=== PATIENT | female | born 1980 | race Caucasian/White ===

== ENCOUNTER 2019-02-22 00:27 | Emergency (ER) | payer BC ==
[~2019-02-22] VITALS: Ht 175.3 cm; Wt 131.8 kg
[2019-02-22] MEDS ORDERED: TOPAMAX 25 MG T25 M1 PO (00:47)
[2019-02-22] MEDS ORDERED: HYDROXYZINE HCL25 M1 PO (00:48)
[2019-02-22] MEDS ORDERED: IBUPROFEN 800800 MG PO (01:17)
[2019-02-22] MEDS ORDERED: ACETAMINOPHEN-1 EAC1 PO (01:17)
[2019-02-22 01:38] VITALS: BP 124/93
== END 2019-02-22 01:38 | disposition home or self-care (01) ==
LOC: M.ERS 00:27
DX: S93.492A Sprain of other ligament of left ankle, initial encounter (principal); Z98.51 Tubal ligation status; Z88.2 Allergy status to sulfonamides; W18.39XA Other fall on same level, initial encounter; Y93.01 Activity, walking, marching and hiking; Y92.89 Other specified places as the place of occurrence of the external cause; Y99.8 Other external cause status

== ENCOUNTER 2019-02-26 19:03 | Emergency (ER) | payer BC ==
[~2019-02-26] VITALS: Ht 175.3 cm; Wt 126.5 kg
[~2019-02-26 19:03] MED LIST: ACETAMINOPHEN-1 EAC1 PO; HYDROXYZINE HCL25 M1 PO; IBUPROFEN 800800 MG PO; TOPAMAX 25 MG T25 M1 PO
[2019-02-26] MEDS ORDERED: FLEXERIL PO (21:56)
[2019-02-26] MEDS ORDERED: IBUPROFEN 800800 M1 PO (21:56)
[2019-02-26 22:07] VITALS: BP 133/79
== END 2019-02-26 22:08 | disposition home or self-care (01) ==
LOC: M.ERS 19:03
DX: S16.1XXA Strain of muscle, fascia and tendon at neck level, initial encounter (principal); M62.830 Muscle spasm of back; Z88.2 Allergy status to sulfonamides; V89.2XXA Person injured in unspecified motor-vehicle accident, traffic, initial encounter; Y92.89 Other specified places as the place of occurrence of the external cause; Y93.89 Activity, other specified; Y99.8 Other external cause status